=== PATIENT | female | born 1935 | race Caucasian/White ===

== ENCOUNTER → 2017-06-09 | Outpatient (CLI) | payer MEDICARE, OTHER ==
[~2017-06-09] MED LIST: CART120C PO; CIPR500T3 PO; ESTRACE PV; FLON0.054; GEMF600T PO; K-TA10TA2 PO; LEVO75TA4 PO; LISI10TA4 PO; METO1TAB7 PO; NORCOTAB PO; PERCOCET PO; PRAD150C PO
--- NOTE | 2017-06-09 21:46 | REP ---
BILATERAL DIGITAL SCREENING MAMMOGRAM: 06/09/2017. Comparison: Diagnostic left mammogram 05/15/2016, screening digital mammogram 05/14/2016, 05/03/2015, 03/22/2014, 01/23/2013. Clinical history: Screening examination. She has no current complaints. She has no personal history of breast cancer but has had benign stereotactic biopsy left breast in 2011 prior excisional biopsy of both breasts which were benign and a family history of a sibling with breast cancer at age 64. Findings: Standard two view mammography shows breast parenchyma heterogeneously dense in the retroareolar zones bilaterally and a patten and general distribution unchanged from previous studies. There are coarse benign calcifications scattered in each breast with similar pattern. There are also some other pleomorphic type calcifications in the retroareolar zone of the left breast is a zone of tissue asymmetry. These have increased since last year's study. Zone of architectural distortion and tissue asymmetry of the retroareolar zone of the left breast shows further change and more spiculation now. I do not see skin thickening. There is intramammary node in the upper outer quadrant of the left breast. Right breast shows no acute finding. Arterial calcifications are seen in each breast. There is a pacemaker unit over the left breast. Impression: 1. BIRADS ACR category 0, incomplete. Additional imaging required. The tissue asymmetry, architectural distortion retroareolar zone left breast shows increased density and spiculation appearance. In addition there are some increased numbers of calcifications associated with them and not all of them are course, benign-appearing given the family history of sibling with breast cancer and this changing pattern, further evaluation is indicated. Spot magnified CC and MLO images breast ultrasound performed, although this could be a desmoplastic reaction in the surgical bed, she is not a candidate for MRI evaluation because of pacemaker. She ultimately will likely need biopsy. BI-RADS/ACR category 0 mammogram, incomplete. Additional imaging and/or prior images are needed before a final assessment can be assigned. This mammogram was interpreted with the aid of an FDA-approved computer-aided detection system. The patient states she had a clinical breast exam in 05/2017. The patient letter being requested is M0 dense.
== END ==
LOC: M WHC 12:49
PROVIDERS: ATTEND Obstetrics & Gynecology
DX: R92.8 Other abnormal and inconclusive findings on diagnostic imaging of breast (principal); Z79.899 Other long term (current) drug therapy
CPT/HCPCS: 81001; 87088; 87186; G0202

== ENCOUNTER → 2017-06-23 | Outpatient (CLI) | payer MEDICARE, OTHER ==
--- NOTE | 2017-06-23 13:41 | REP ---
DIAGNOSTIC MAMMOGRAM LEFT BREAST WITH LEFT BREAST ULTRASOUND: Diagnostic mammogram left breast performed with multiple spot compression views obtained. Correlation is made with a recent mammogram of 06/09/2017 and comparison is made with multiple prior exams. A new spiculated mass is confirmed at the 12-o'clock position of the left breast with associated architectural distortion. There are multiple tiny calcifications in this region as well as some coarse benign type calcifications. Real-time sonographic evaluation of the upper left breast demonstrates an irregular mass with distal acoustic shadowing at the 1 -o'clock position measuring 1.4 x 1.5 x 1.6 cm. There are adjacent dilated ducts. The findings are consistent with breast cancer. IMPRESSION: ACR category 5 mammogram consistent with breast cancer. Spiculated mass is seen both mammographically and sonographically at the 1 -o'clock position. Biopsy may be made with ultrasound guidance. BI-RADS/ACR category 5 mammogram. Highly suggestive of malignancy - appropriate action should be taken. Requires biopsy or surgical treatment. Patient letter M4. Signed by Smith Murphy MD 06/23/2017 05:11 P
== END ==
LOC: M RAD 10:57
PROVIDERS: ATTEND Obstetrics & Gynecology
DX: R92.8 Other abnormal and inconclusive findings on diagnostic imaging of breast (principal); N63 Unspecified lump in breast; R92.0 Mammographic microcalcification found on diagnostic imaging of breast; M85.80 Other specified disorders of bone density and structure, unspecified site
CPT/HCPCS: 76642; 77080; G0206

== ENCOUNTER → 2017-06-23 | Outpatient (CLI) | payer MEDICARE, OTHER ==
--- NOTE | 2017-06-25 09:58 | DEXA ---
AP SPINE L1 - L4 0.899 -2.4 -0.5 LT FEMUR TOTAL 0.668 -2.7 -0.7 RT FEMUR TOTAL 0.858 -1.2 0.8 TOTAL BODY TOTAL OTHER DUAL FEMUR FRAX* ASSESSMENT Risk factors: Not performed. 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 The decreased density of the spine does represent a significant change. The decreased density of the left hip does represent a significant change. The decreased density of the right hip does represent a significant change. The density of the spine has decreased 4.5% since the initial exam on 2004. The spine density has decreased 11.1% since the most recent exam on 10/15/2011. The density of the left hip has decreased 34.4% since the initial exam on 2004. The density of the left hip has decreased 26.8% since the most recent exam on . The density of the right hip has decreased 17.5% since the initial exam on 04/01. The density of the right hip has decreased 15.8% since the most recent exam on 10/15/2011. FOLLOW-UP: Recommendation for the next bone density exam: 2 years. SAMUEL
== END ==
LOC: M WHC 14:12
PROVIDERS: ATTEND Nurse Practitioner
DX: M85.80 Other specified disorders of bone density and structure, unspecified site (principal)

== ENCOUNTER → 2017-06-30 | Outpatient (REF) | payer MEDICARE, OTHER | LOC: M LAB REF 16:29 | PROVIDERS: ATTEND Obstetrics & Gynecology | DX: Z87.440 Personal history of urinary (tract) infections (principal) ==

== ENCOUNTER → 2019-06-26 | Outpatient (CLI) | payer MEDICARE, OTHER ==
[~2019-06-26] MED LIST changes: -GEMF600T PO; +GEMF600T5 PO; +HYDR-3715 PO; -NORCOTAB PO; -PRAD150C PO; +PRAD150C6 PO
== END ==
LOC: M WHC 10:28
PROVIDERS: ATTEND Internal Medicine Medical Oncology
DX: Z79.890 Hormone replacement therapy (principal); C50.412 Malignant neoplasm of upper-outer quadrant of left female breast; Z17.0 Estrogen receptor positive status [ER+]; Z13.820 Encounter for screening for osteoporosis; M89.9 Disorder of bone, unspecified

== ENCOUNTER → 2025-07-02 | Outpatient (REF) | payer MEDICARE, OTHER ==
[~2025-07-02] MED LIST changes: -K-TA10TA2 PO; +LISI10TA22 PO; -LISI10TA4 PO; +POTA-165 PO
[2025-07-02 14:16] LABS: APPEARANCE, URINE CLOUDY (CLEAR); BACTERIA, URINE AUTO 1+ (NEGATIVE); BILIRUBIN, URINE AUTO NEGATIVE (NEGATIVE); BLOOD, URINE BLOOD 3+ (NEGATIVE); GLUCOSE, URINE (UA) AUTO NEGATIVE (NEGATIVE); KETONE, URINE AUTO NEGATIVE (NEGATIVE); LEUKOCYTE ESTERASE, URINE AUTO 3+ (NEGATIVE); NITRITE, URINE AUTO POSITIVE (NEGATIVE); PROTEIN, URINE AUTO 2+ mg/dL (NEGATIVE); RBC, URINE AUTO 56 /HPF (0-3); SPECIFIC GRAVITY URINE AUTO 1.015 (1.002-1.035); SQUAMOUS EPITHELIAL CELL UR AU 13 /HPF (0-6); UROBILINOGEN, URINE AUTO 0.2 mg/dL (0.0-2.0); WBC, URINE AUTO TNTC /HPF (0-3)
== END ==
LOC: M SFHCPLAZ 12:45 → EEVIPCON 12:45
PROVIDERS: ATTEND Internal Medicine Infectious Disease
DX: N39.0 Urinary tract infection, site not specified (principal)